=== PATIENT | male | born 1985 | race Caucasian/White ===

== ENCOUNTER 2022-01-02 15:56 | Emergency (ER) | payer MEDICAID, SELFPAY ==
[2022-01-02 15:57] VITALS: BP 125/71; PULSE 105; RESP 14; TEMP 36.8; O2SAT 95; BMI 24.3
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
[2022-01-02] MEDS: amoxicillin-clav 875-125 mg Tablet 1 TAB PO (16:35)
[2022-01-02] MEDS: mupirocin oint 22 gm 1 APPLIC TOPICAL (16:35)
[2022-01-02] MEDS: tetanus-dipt-pertussis 0.5 mL SDV IM (16:35)
== END 2022-01-02 17:06 | disposition home or self-care (01) ==
PROVIDERS: Emergency Provider Nurse Practitioner Family; PCP Family Medicine
DX: S90.811A Abrasion, right foot, initial encounter (principal); L08.9 Local infection of the skin and subcutaneous tissue, unspecified; V86.79XA Person on outside of other special all-terrain or other off-road motor vehicles injured in nontraffic accident, initial encounter; Z23 Encounter for immunization
CPT/HCPCS: 73630; 90471; 90715; 99283

== ENCOUNTER 2022-01-03 14:40 | Emergency (ER) | payer MEDICAID, SELFPAY ==
[2022-01-03 14:45] VITALS: BP 137/85; PULSE 80; RESP 20; TEMP 36.9; O2SAT 100; BMI 24.3
--- NOTE | 2022-01-03 15:00 | XRR_ITS ---
PROCEDURE INFORMATION: Exam: XR Chest Exam date and time: 01/03/2022 3:10 PM Age: 36 years old Clinical indication: Shortness of breath; Additional info: Cough, fever TECHNIQUE: Imaging protocol: Radiologic exam of the chest. Views: 1 view. COMPARISON: No relevant prior studies available. FINDINGS: Lungs: Unremarkable. No consolidation. Pleural spaces: Unremarkable. No pleural effusion. No pneumothorax. Heart/Mediastinum: Unremarkable. No cardiomegaly. Bones/joints: Unremarkable. XR/XR chest 1V portable [id number] IMPRESSION: No acute findings.
--- NOTE | 2022-01-03 15:00 | W.ED.FEVER ---
HPI - Fever General: Chief Complaint: Fever Stated Complaint: fever Time Seen by Provider: 01/03/22 14:52 History of Present Illness: 36-year-old male patient comes back today for complaints of nausea vomiting, fever, and feeling poorly since this morning. Patient was evaluated yesterday and started on Augmentin and mupirocin for a wound infection of the foot. Visualization of the wound appears to be much better than it was yesterday as I was the provider that seen him yesterday. Patient does appear unwell but not toxic. Patient has no chronic medical problems. Associated symptoms: Reports nausea and vomiting Review of Systems Const: Reports: fever(s) GI: Reports: nausea and vomiting Skin/Breast: Reports: new lesions (Healing wound right foot) Physical Exam Const: COMMON NORMALS: alert HENMT: COMMON NORMALS: normocephalic HEAD & SCALP: normocephalic MOUTH: Normal oral and palatal mucosa present Resp: COMMON NORMALS: normal respiratory effort AUSCULTATION: diminished lung sounds Cardio: COMMON NORMALS: regular rate and regular rhythm RATE: regular rate RHYTHM: regular rhythm GI: COMMON NORMALS: Soft to palpation PALPATION: Yes Soft to palpation Neuro: SENSORIUM/ORIENTATION: Yes alert Skin: COMMON NORMALS: no rashes or lesions noted GENERAL SKIN EXAM: no rashes or lesions noted Course Vital Signs: Vital signs: Vital Signs Temperature 98.4 F 01/03/22 14:45 Pulse Rate 80 01/03/22 14:45 Respiratory Rate 20 H 01/03/22 14:45 Blood Pressure 137/85 01/03/22 14:45 Pulse Oximetry 100 01/03/22 14:45 Oxygen Delivery Dc thod 01/03/22 14:45 MDM - Fever Medical Decision Making Patient comes back in today for concerns of nausea vomiting, fever, and feeling worse after being treated for a wound infection yesterday. On exam the wound actually looks much improved with less swelling around the wound and a healing lesion. Respirations are even lungs are clear to auscultation. Abdomen soft with some mild epigastric tenderness. Vital signs are normal. Differential diagnosis includes but not limited to sepsis, viral syndrome, adverse drug effect. Laboratory values noted a white count of 14,000. CMP and lactate were normal. Patient was given 4 mg of Zofran IV and 1 L of IV fluids with improvement of symptoms. Patient did continue to have a headache and he was given some Toradol for his pain. Patient was recommended to go home and use acetaminophen and ibuprofen for pain and discomfort. Use Zofran as needed for nausea and vomiting. Recommend follow-up with primary care off work for 2 days. We were awaiting COVID-19 testing for final results. Lab Data : 01/03/22 15:03 01/03/22 15:03 Radiology Impressions Chest X-Ray 01/03/22 15:00 IMPRESSION: No acute findings. Laboratory Results WBC 14.3 10^3/uL (4.0-10.0) H 01/03/22 15:03 RBC 4.42 10^6/uL (4.1-5.3) 01/03/22 15:03 Hgb 12.8 g/dL (11.7-16.6) 01/03/22 15:03 Hct 40.5 % (42.0-52.0) L 01/03/22 15:03 MCV 91.6 fl (80-94) 01/03/22 15:03 MCH 29.0 pg (28.0-34.0) 01/03/22 15:03 MCHC 31.6 g/dL (30.0-36.0) 01/03/22 15:03 RDW 13.7 % (12.1-15.1) 01/03/22 15:03 Plt Count 271 10^3/cmm (130-400) 01/03/22 15:03 MPV 10.9 fL (7.4-10.4) H 01/03/22 15:03 Neut % (Auto) 71.2 % 01/03/22 15:03 Lymph % (Auto) 20.1 % 01/03/22 15:03 [place] % (Auto) 6.0 % 01/03/22 15:03 Eos % (Auto) 2.0 % 01/03/22 15:03 Baso % (Auto) 0.4 % 01/03/22 15:03 Neut # (Auto) 10.14 10^3/uL (1.8-7.7) H 01/03/22 15:03 Lymph # (Auto) 2.9 10^3/uL (0.8-4.8) 01/03/22 15:03 [place] # (Auto) 0.9 10^3/uL (0.2-0.9) 01/03/22 15:03 Eos # (Auto) 0.3 10^3/uL (0.0-0.8) 01/03/22 15:03 Baso # (Auto) 0.1 10^3/uL (0.0-0.1) 01/03/22 15:03 Nucleated RBC % (auto) 0 % 01/03/22 15:03 Nucleated RBCs # 0.0 /100WBC 01/03/22 15:03 Sodium 138 mmol/L (136-145) 01/03/22 15:03 Potassium 3.8 mmol/L (3.5-5.1) 01/03/22 15:03 Chloride 100 mmol/L (98-107) 01/03/22 15:03 Carbon Dioxide 29 mmol/L (22-29) 01/03/22 15:03 Anion Gap 12.8 (5-19) 01/03/22 15:03 BUN 11 mg/dL (6-20) 01/03/22 15:03 Creatinine 0.8 mg/dL (0.7-1.2) 01/03/22 15:03 GFR Calculation 110.7 mL/min (90-130) 01/03/22 15:03 Glucose 90 mg/dL (65-115) 01/03/22 15:03 Calculated Osmolality 285 mOsm/kg (285-295) 01/03/22 15:03 Lactic Acid 1.1 mmol/L (0.5-2.2) 01/03/22 15:03 Calcium 9.6 mg/dL (8.5-10.5) 01/03/22 15:03 Total Bilirubin 0.2 mg/dL (0.15-1.2) 01/03/22 15:03 AST 15 U/L (0-40) 01/03/22 15:03 ALT 17 U/L (0-41) 01/03/22 15:03 Alkaline Phosphatase 105 U/L (40-130) 01/03/22 15:03 Total Protein 7.3 g/dL (6.6-8.7) 01/03/22 15:03 Albumin 4.1 g/dL (3.5-5.2) 01/03/22 15:03 Globulin 3.2 g/dL (1.3-4.6) 01/03/22 15:03 Discharge Plan Discharge Patient Disposition: Home Clinical Impression: Viral syndrome Condition: Stable Prescriptions: New ondansetron 4 mg tablet,disintegrating 4 mg PO Q8H PRN (Reason: nausea and vomiting) Qty: 10 0RF No Action amoxicillin-pot clavulanate 875-125 mg tablet 1 tab PO BID Qty: 14 0RF mupirocin 2 % ointment 1 applic topical BID Qty: 22 0RF Discharge Orders: Discharge ED (Routine); Ordered 01/03/22 Ordered By: Herbert York Referrals: Jose Khanna MD [Primary Care Provider] - Discharge Diet: Usual diet Discharge Activity: Increase activity as tolerated Patient Instructions: Viral Syndrome (ED) Activity Restrictions/Additional Instructions: Continue with care for your wound infection as directed. Make sure to take antibiotic with food on your stomach. Use ondansetron as needed for nausea or vomiting. Make sure to drink plenty of water and fluids. Follow-up with the emergency room staff in 2 to 3 hours for final results of COVID testing. Follow-up with primary care as needed. Return to ER for new concerns or worsening symptoms. Stand Alone Forms: Work/School Release Coding Level of Care Code ED Rem[employer] Furnace Expediter for Raymon Fwd Exam Detailed
[2022-01-03] MEDS: ondansetron 2 mg/ML SDV 2 mL 4 MG IVP (15:43)
[2022-01-03] MEDS: sodium chloride 0.9% 1,000 ML 999 ML IV (15:43)
[2022-01-03 15:44] LABS: Basophils # 0.1 10^3/uL (0.0-0.1); Basophils % 0.4 %; Eosinophils # 0.3 10^3/uL (0.0-0.8); Hematocrit 40.5 % (42.0-52.0); Hemoglobin 12.8 g/dL (11.7-16.6); Lymphocytes # 2.9 10^3/uL (0.8-4.8); Lymphocytes % 20.1 %; Mean Corpuscular HGB Conc 31.6 g/dL (30.0-36.0); Mean Corpuscular Volume 91.6 fl (80-94); Mean Platelet Volume 10.9 fL (7.4-10.4); Monocytes # 0.9 10^3/uL (0.2-0.9); Neutrophils # 10.14 10^3/uL (1.8-7.7); Neutrophils % 71.2 %; Nucleated Red Blood Cells % 0 %; Platelet Count 271 10^3/cmm (130-400); Red Blood Count 4.42 10^6/uL (4.1-5.3); Red Cell Distribution Width 13.7 % (12.1-15.1); White Blood Count 14.3 10^3/uL (4.0-10.0)
[2022-01-03 16:12] LABS: Alanine Aminotransferase 17 U/L (0-41); Albumin Level 4.1 g/dL (3.5-5.2); Alkaline Phosphatase 105 U/L (40-130); Anion Gap 12.8 (5-19); Aspartate Amino Transferase 15 U/L (0-40); Blood Urea Nitrogen 11 mg/dL (6-20); Calcium 9.6 mg/dL (8.5-10.5); Carbon Dioxide 29 mmol/L (22-29); Chloride 100 mmol/L (98-107); Creatinine Clr Calc Pharmacy 128.9483; Globulin 3.2 g/dL (1.3-4.6); Glomerular Filtration Rate 110.7 mL/min (90-130); Glucose 90 mg/dL (65-115); Osmolality Calculated 285 mOsm/kg (285-295); Potassium 3.8 mmol/L (3.5-5.1); Sodium 138 mmol/L (136-145); Total Bilirubin 0.2 mg/dL (0.15-1.2); Total Protein 7.3 g/dL (6.6-8.7)
[2022-01-03 16:14] LABS: Lactic Sepsis W/Reflex 1.1 mmol/L (0.5-2.2)
[2022-01-03] MEDS: ketorolac 30 mg/mL INJ 15 MG IVP (17:01)
[2022-01-03 17:24] VITALS: PULSE 97; RESP 16; O2SAT 98
[2022-01-03 18:25] LABS: Adenovirus Not Detected (NOT DETECT); Chlamydia Pneumoniae Not Detected (NOT DETECT); Coronavirus 229E,HKU1,NL63,OC4 Not Detected (NOT DETECT); Human Metapneumovirus Not Detected (NOT DETECT); Human Rhinovirus/Enterovirus Not Detected (NOT DETECT); Influenza A Not Detected (NOT DETECT); Influenza A H1 Not Detected (NOT DETECT); Influenza A H1-2009 Not Detected (NOT DETECT); Influenza A H3 Not Detected (NOT DETECT); Influenza B Not Detected (NOT DETECT); Mycoplasma Pneumoniae Not Detected (NOT DETECT); Parainfluenza Virus Type 1 Not Detected (NOT DETECT); Parainfluenza Virus Type 2 Not Detected (NOT DETECT); Parainfluenza Virus Type 3 Not Detected (NOT DETECT); Parainfluenza Virus Type 4 Not Detected (NOT DETECT); Respiratory Syncytial Virus A Not Detected (NOT DETECT); Respiratory Syncytial Virus B Not Detected (NOT DETECT); SARS-COV-2 Not Detected (NOT DETECT)
== END 2022-01-03 17:26 | disposition home or self-care (01) ==
PROVIDERS: Emergency Provider Nurse Practitioner Family; PCP Family Medicine
DX: B34.9 Viral infection, unspecified (principal); Z20.822 Contact with and (suspected) exposure to COVID-19
CPT/HCPCS: 71045; 80053; 83605; 85025; 87040; 87635; 96361; 96374; 96375; 99284; J1885; J2405; J7030